=== PATIENT | female | born 1980 | race African-American/Black ===

== ENCOUNTER 2024-01-23 14:50 | Emergency (ER) | payer OTHER ==
[2024-01-23 14:59] VITALS: BP 139/82; RESP 18; BMI 32.8
[2024-01-23] MEDS ORDERED: ACETAMINOPHEN 500 MG TABLET (FP) ONE (16:12)
[2024-01-23] MEDS ORDERED: KETOROLAC TROMETHAMINE 30 MG/1 ML VIAL ONE (16:12)
[2024-01-23] MEDS: SODIUM CHLORIDE 0.9% 500 ML INFUS.BAG IV ONE (16:20)
[2024-01-23] MEDS: KETOROLAC TROMETHAMINE 30 MG/1 ML VIAL IVPUSH ONE (16:20)
[2024-01-23] MEDS: ACETAMINOPHEN 500 MG TABLET (FP) PO ONE (16:21)
[2024-01-23 17:05] LABS: BASO % 0.3 % (0-2.0); EOS % 0.2 % (0-4.5); HEMATOCRIT 34.8 % (32.4-45.2); HEMOGLOBIN 11.3 GM/dL (10.7-15.3); LYMPH % 12.2 % (8-40); MCH 21.8 pg (25.7-33.7); MCHC 32.4 g/dl (32.0-36.0); MEAN CELL VOLUME 67.4 fl (80-96); MONO % 6.7 % (3.8-10.2); NEUT % 80.6 % (42.8-82.8); PLATELET COUNT 223 10^3/uL (134-434); RBC 5.17 M/mm3 (3.60-5.2); RDW 17.3 % (11.6-15.6); WHITE BLOOD COUNT 10.5 K/mm3 (4.0-10.0)
[2024-01-23 17:07] LABS: HCG,QUALITATIVE URINE Negative
[2024-01-23 17:08] LABS: EPI CELLS 15 /uL (0-25.1); HYALINE CASTS 0 /uL (0-3.1); URINE APPEARANCE CLEAR; URINE BACTERIA 81 /uL (0-1359); URINE BILIRUBIN NEGATIVE (NEGATIVE); URINE COLOR YELLOW; URINE GLUCOSE (UA) NEGATIVE (NEGATIVE); URINE KETONE 2+ (NEGATIVE); URINE LEUK ESTERASE TRACE (NEGATIVE); URINE NITRITE NEGATIVE (NEGATIVE); URINE PROTEIN NEGATIVE (NEGATIVE); URINE RBC 12 /uL (0-23.9); URINE WBC 31 /uL (0-25.8)
[2024-01-23 17:22] VITALS: PULSE 88; TEMP 99.6
[2024-01-23 17:39] LABS: CALCIUM 9.2 mg/dL (8.5-10.1)
[2024-01-23 17:40] LABS: ALBUMIN 3.5 g/dl (3.4-5.0); BLOOD UREA NITROGEN 5.8 mg/dL (7-18)
[2024-01-23 17:42] LABS: CREATININE 0.7 mg/dL (0.55-1.3)
[2024-01-23 17:44] LABS: TOT PROT 8.3 g/dl (6.4-8.2)
[2024-01-23 17:45] LABS: BILIRUBIN,TOTAL 0.7 mg/dL (0.2-1)
[2024-01-23 17:49] LABS: ANISOCYTOSIS 1+; MACROCYTOSIS 0; TARGET CELLS 1+
[2024-01-23] MEDS ORDERED: SULFAMETHOXAZOLE/TRIMETHOPRIM 800MG/160MG D.S. TABLET ONE (18:10)
[2024-01-23] MEDS: SULFAMETHOXAZOLE/TRIMETHOPRIM 800MG/160MG D.S. TABLET PO ONE (18:17)
== END 2024-01-23 18:18 | disposition home or self-care (01) ==
LOC: JER 14:50
PROC: 3E0333Z Introduction of Anti-inflammatory into Peripheral Vein, Percutaneous Approach (ICD-10-PCS; principal; 2024-01-23)
DX: L02.31 Cutaneous abscess of buttock (principal); R00.0 Tachycardia, unspecified
CPT/HCPCS: 36415; 80053; 81003; 83605; 84703; 85025; 87086; 99284-25